=== PATIENT | female | born 1995 | race Two or more races ===

== ENCOUNTER 2021-06-15 16:06 | Emergency (ER) | payer OTHER ==
[~2021-06-15] VITALS: Ht 172.7 cm; Wt 52.2 kg
[2021-06-15] MEDS ORDERED: MIRALAX510 GM PO (20:32)
== END 2021-06-16 | disposition home or self-care (01) ==
LOC: ER 16:06
DX: K59.09 Other constipation (principal)

== ENCOUNTER 2022-09-03 20:51 | Emergency (ER) | payer OTHER ==
[~2022-09-03] VITALS: Ht 170.2 cm; Wt 59.0 kg
[~2022-09-03 20:51] MED LIST: MIRALAX510 GM PO
== END 2022-09-03 22:15 | disposition home or self-care (01) ==
LOC: ER 20:51
DX: K30 Functional dyspepsia (principal); R11.0 Nausea; R42 Dizziness and giddiness; R19.7 Diarrhea, unspecified